=== PATIENT | male | born 1930 | race Caucasian/White ===

== ENCOUNTER 2017-06-23 13:55 | Emergency (ER) | payer MEDICARE ==
[~2017-06-23] VITALS: Ht 182.9 cm; Wt 86.2 kg
[2017-06-23 14:00] VITALS: BP_SYST 96
--- NOTE | 2017-06-23 14:00 | NUR ---
PT BROUGHT IN BY BLS, PT HAS DIFFICULTY RECALLING WHAT HAPPENED. ACCORDING TO EMS, PT WAS AT [facility] FOR ROUTINE LAB WORK WHEN HE HAD A SYNCOPAL EPISODE HE WAS LEAVING. NO SIGNS ACUTE INJURY/DISTRESS NOTED. EMS STATES GLUCOSE 173 IN ROUTE. PT HAS HX OF DM, CVA, HTN. WILL CONTINUE TO MONITOR.
--- NOTE | 2017-06-23 14:00 | NUR ---
ER at bedside examining patient.
--- NOTE | 2017-06-23 15:00 | NUR ---
PT TAKEN OFF UNIT FOR CT.
[2017-06-23 15:04] LABS: BASOPHILS # (AUTO) 0.1 K/uL (0.0-0.2); BASOPHILS % (AUTO) 1.2 % (0.0-2.0); EOSINOPHILS # (AUTO) 0.1 K/uL (0.0-0.4); EOSINOPHILS % (AUTO) 0.7 % (0.0-4.0); HEMATOCRIT 48.2 % (36-54); HEMOGLOBIN 16.2 g/dL (14.0-18.0); LYMPHOCYTES # (AUTO) 1.3 K/uL (1.0-5.5); LYMPHOCYTES % (AUTO) 16.1 % (20.5-51.5); MEAN CORPUSCULAR HEMOGLOBIN 33 pg (27-31); MEAN CORPUSCULAR HGB CONC 34 % (32-36); MEAN CORPUSCULAR VOLUME 99 fL (79.0-98.0); MONOCYTES # (AUTO) 0.5 K/uL (0.0-1.0); MONOCYTES % (AUTO) 6.3 % (1.7-9.3); NEUTROPHILS # (AUTO) 6.2 K/uL (1.8-7.7); NEUTROPHILS % (AUTO) 75.7 % (40.0-70.0); PLATELET COUNT (AUTO) 205 K/uL (130-430); RED BLOOD CELL COUNT(AUTO) 4.89 MIL/uL (4.2-6.2); WHITE BLOOD COUNT (AUTO) 8.2 K/uL (4.8-10.8)
[2017-06-23 15:17] LABS: ALANINE AMINOTRANSFERASE 17 U/L (12-78); ANION GAP 12 (5-15); ASPARTATE AMINOTRANSFERASE 26 U/L (10-37); CHLORIDE 103 mmol/L (98-107); GLUCOSE 176 mg/dL (70-99); SODIUM SERUM 137 mmol/L (136-145); TOTAL BILIRUBIN 2.1 mg/dL (0.0-1.0); UREA NITROGEN, BLOOD 26 mg/dL (8-21)
--- NOTE | 2017-06-23 15:20 | NUR ---
PT'S AT BEDSIDE. PT'S ABLE TO GIVE FURTHER INFO, STATES PT HAS HAD WEAKNESS AND HAS HAD DIFFICULTY EATING FOR THE PAST WEEK. SHE STATES THAT THEY WERE LEAVING [place], PT WAS IN WHEELCHAIR AND COLLAPSED BUT DID NOT FALL OUT OF CHAIR. STATES THAT PT ALSO HAD A FALL AT HOME THIS MORNING AND FELL TO HIS KNEES BUT DID NOT HIT HIS HEAD, SHE STATES PT HAS FALLS FREQUENTLY D/T WEAKNESS AND UNSTEADY GAIT.
[2017-06-23 15:29] LABS: CALCIUM 8.8 mg/dL (8.4-11.0); CREATININE 1.92 mg/dL (0.55-1.30)
[2017-06-23] MEDS: POTASSIUM CHLORIDE 20 MEQ TAB.PRT.SR PO ONE (15:50)
[2017-06-23 15:51] LABS: INR 1.5 (0.80-1.20)
[2017-06-23 15:55] LABS: PROTHROMBIN TIME 15.5 SECS (9.5-12.5)
--- NOTE | 2017-06-23 17:31 | NUR ---
GAVE REPORT TO SOLANGE BAUTISTA [facility] ER. EMS ETA 1800.
--- NOTE | 2017-06-23 18:24 | NUR ---
Patient to be transferred to [facility]. Is being transferred due to higher level of care. Receiving facility has accepting physician and available space. ER physician has signed transfer form. Patient or responsible republican has agreed to transfer and signed form. Patient belongings inventoried and will be sent with patient. Copy of nursing notes, lab reports, EKG, Physicians Orders and X-rays to be sent with patient. Report called to SOLANGE at receiving facility. Receiving physician is DR QUICK. [facility] HAS LEFT FACILITY WITH PT.
[2017-06-23 18:27] VITALS: BP_SYST 147
== END 2017-06-23 18:26 | disposition short-term general hospital (02) ==
LOC: SED 13:55
DX: E87.6 Hypokalemia (principal); R55 Syncope and collapse; N28.9 Disorder of kidney and ureter, unspecified; I25.10 Atherosclerotic heart disease of native coronary artery without angina pectoris; Z88.0 Allergy status to penicillin; Z86.73 Personal history of transient ischemic attack (TIA), and cerebral infarction without residual deficits
CPT/HCPCS: 36415; 70450-TC; 71045; 80053; 84484; 85025; 85610-TC; 85730-TC; 93005; 99285